=== PATIENT | female | born 1990 | race Two or more races ===

== ENCOUNTER 2020-08-09 16:56 | Observation (INO) | payer OTHER ==
[2020-08-13 17:10] LABS: COVID AG,FIA SOURCE NASOPHARYNGEAL
== END 2020-08-13 15:50 | disposition home or self-care (01) ==
LOC: 4S 08-13 15:44
PROVIDERS: ADMIT Obstetrics & Gynecology; ATTEND Obstetrics & Gynecology
DX: O48.0 Post-term pregnancy (principal); Z20.822 Contact with and (suspected) exposure to COVID-19; Z3A.40 40 weeks gestation of pregnancy
CPT/HCPCS: 87426; 99219

== ENCOUNTER 2020-08-15 15:00 | Inpatient (IN) | payer OTHER ==
[~2020-08-15] VITALS: Ht 160 cm; Wt 86.6 kg
[~2020-08-15 15:00] MED LIST: CITRIC ACID/SODIUM CITRATE 30 ML SOLUTION UDCUP PO PRN; FentaNYL CITRATE PF 100 MCG/2 ML VIAL IVP PRN; LIDOCAINE/PF 1% 30 ML VIAL SQ PRN; METHYLERGONOVINE MALEATE 0.2 MG/ML VIAL IM PRN; METOCLOPRAMIDE HCL 5 MG/ML 2 ML VIAL IVP PRN; OXYTOCIN 30 UNITS/LACT RINGERS 500 ML IV ONE; OXYTOCIN 30 UNITS/LACT RINGERS 500 ML IV PRN; RINGERS SOLUTION,LACTATED 1,000 ML IV PRN
[2020-08-15 15:47] LABS: BASOPHILS % (AUTO) 0.9 % (0.0-2.0); EOSINOPHILS % (AUTO) 0.7 % (1.0-6.0); HEMATOCRIT 36.5 % (36-46); HEMOGLOBIN 12.6 g/dL (12.0-16.0); LYMPHOCYTES # (AUTO) 1.6 K/uL (1.0-4.8); MEAN CORPUSCULAR HEMOGLOBIN 32.1 pg (26.0-34.0); MEAN CORPUSCULAR HGB CONC 34.6 G/dL (31.0-37.0); MEAN CORPUSCULAR VOLUME 93 fL (80-100); MONOCYTES # (AUTO) 0.5 K/uL (0.1-1.0); MONOCYTES % (AUTO) 5.5 % (2.0-9.0); NEUTROPHILS % (AUTO) 75.9 % (40.0-70.0); PLATELET COUNT (AUTO) 230 K/uL (150-450); RED BLOOD CELL COUNT(AUTO) 3.92 MIL/uL (4.00-5.20); RED CELL DISTRIBUTION WIDTH 14.8 % (11.5-14.5)
[2020-08-15] MEDS: RINGERS SOLUTION,LACTATED 1,000 ML IV SCH ×2 (15:58→22:00)
[2020-08-15] MEDS ORDERED: MISOPROSTOL 50 MCG TABLET PO SCH (16:45)
[2020-08-15 17:16] VITALS: BP 125/76
[2020-08-15] MEDS ORDERED: OXYGEN THERAPY IH SCH (20:00)
[2020-08-15] MEDS ORDERED: PREN-217 PO (20:36)
[2020-08-15] MEDS: MISOPROSTOL 50 MCG TABLET VG SCH (21:02)
[2020-08-16] MEDS: MISOPROSTOL 50 MCG TABLET VG SCH ×3 (01:03→09:12)
[2020-08-16] MEDS: RINGERS SOLUTION,LACTATED 1,000 ML IV SCH ×4 (06:34→19:30)
[2020-08-16] MEDS ORDERED: BUPIVACAINE HCL/DEX-WATER/PF 0.75% 2 ML AMP ITH ONE (10:22)
[2020-08-16] MEDS ORDERED: SODIUM CHLORIDE 0.9% 1,000 ML ONE (10:23)
[2020-08-16] MEDS ORDERED: MEPERIDINE-PF 25 MG/ML VIAL IVP PRN (10:45)
[2020-08-16] MEDS ORDERED: FentaNYL CITRATE PF 100 MCG/2 ML VIAL IVP PRN ×2 (10:45→11:15)
[2020-08-16] MEDS ORDERED: HYDROmorphone 2 MG/ML VIAL IVP PRN (10:45)
[2020-08-16] MEDS ORDERED: MORPHINE SULFATE 10 MG/ML SYRINGE IVP PRN (11:15)
[2020-08-16] MEDS ORDERED: NALBUPHINE HCL 10 MG/ML VIAL IVP PRN ×2 (11:15)
[2020-08-16] MEDS ORDERED: DiphenhydrAMINE HCL 50 MG/ML VIAL IVP PRN (11:15)
[2020-08-16] MEDS ORDERED: ONDANSETRON HCL 4 MG/2 ML VIAL IVP PRN (11:15)
[2020-08-16] MEDS ORDERED: NALOXONE HCL 0.4 MG/ML VIAL IVP PRN (11:15)
[2020-08-16] MEDS ORDERED: OxyCODONE HCL/ACETAMINOPHEN 5-325 MG TABLET PO PRN ×2 (11:30)
[2020-08-16] MEDS ORDERED: LANOLIN 7 GM OINTMENT TP PRN (11:30)
[2020-08-16] MEDS ORDERED: OXYTOCIN 30 UNITS/LACT RINGERS 500 ML IV ONE (11:30)
[2020-08-16] MEDS: ACETAMINOPHEN 1000 MG/ISO-OSM 100 ML IV SCH ×2 (13:39→22:01)
[2020-08-16] MEDS ORDERED: OXYGEN THERAPY IH SCH ×2 (20:00)
[2020-08-16] MEDS: OXYGEN THERAPY IH SCH (20:00)
[2020-08-16] MEDS: KETOROLAC TROMETHAMINE 30 MG/ML VIAL IVP SCH (20:34)
[2020-08-16] MEDS: MAGNESIUM HYDROXIDE SUSPENSION 30 ML UDCUP PO SCH (22:01)
[2020-08-17] MEDS: RINGERS SOLUTION,LACTATED 1,000 ML IV SCH (02:12)
[2020-08-17] MEDS: KETOROLAC TROMETHAMINE 30 MG/ML VIAL IVP SCH (02:13)
[2020-08-17] MEDS ORDERED: FentaNYL CITRATE PF 100 MCG/2 ML VIAL IVP ONE (05:42)
[2020-08-17] MEDS ORDERED: MORPHINE SULFATE 4 MG/ML SYRINGE IVP ONE (05:42)
[2020-08-17] MEDS ORDERED: OXYTOCIN 10 UNITS/ML VIAL IM ONE (05:42)
[2020-08-17] MEDS ORDERED: EPHEDrine SULFATE 50 MG/ML VIAL IM ONE (05:42)
[2020-08-17] MEDS ORDERED: 0.9% SODIUM CHLORIDE 10 ML VIAL IVP ONE (05:42)
[2020-08-17] MEDS ORDERED: ONDANSETRON HCL 4 MG/2 ML VIAL IVP ONE (05:42)
[2020-08-17 05:55] LABS: BASOPHILS % (AUTO) 0.4 % (0.0-2.0); EOSINOPHILS % (AUTO) 0.8 % (1.0-6.0); HEMOGLOBIN 10.5 g/dL (12.0-16.0); LYMPHOCYTES # (AUTO) 1.7 K/uL (1.0-4.8); LYMPHOCYTES % (AUTO) 16.4 % (22.0-44.0); MEAN CORPUSCULAR HEMOGLOBIN 32.7 pg (26.0-34.0); MEAN CORPUSCULAR HGB CONC 34.8 G/dL (31.0-37.0); MEAN CORPUSCULAR VOLUME 94 fL (80-100); MONOCYTES # (AUTO) 0.5 K/uL (0.1-1.0); MONOCYTES % (AUTO) 4.5 % (2.0-9.0); NEUTROPHILS # (AUTO) 7.9 K/uL (1.8-7.7); NEUTROPHILS % (AUTO) 77.9 % (40.0-70.0); PLATELET COUNT (AUTO)-OB 168 K/uL (150-450)
[2020-08-17] MEDS: OXYGEN THERAPY IH SCH ×2 (08:00→20:00)
[2020-08-17] MEDS: MAGNESIUM HYDROXIDE SUSPENSION 30 ML UDCUP PO SCH ×2 (08:20→21:05)
[2020-08-17] MEDS: IBUPROFEN 800 MG TABLET PO PRN ×2 (11:59→17:27)
[2020-08-18] MEDS: IBUPROFEN 800 MG TABLET PO PRN (08:12)
[2020-08-18] MEDS: MAGNESIUM HYDROXIDE SUSPENSION 30 ML UDCUP PO SCH (08:12)
[2020-08-18] MEDS ORDERED: DOCU-275 PO (11:19)
[2020-08-18] MEDS ORDERED: PERCT PO (11:21)
[2020-08-18] MEDS ORDERED: IBUP-2070 PO (11:21)
== END 2020-08-18 14:27 | disposition home or self-care (01) | DRG 788 ==
LOC: OBSVTOIN 15:00 → 4S 15:00
PROVIDERS: ADMIT Obstetrics & Gynecology; ATTEND Obstetrics & Gynecology
PROC: 10D00Z1 Extraction of Products of Conception, Low, Open Approach (ICD-10-PCS; principal; 2020-08-16)
DX: O76 Abnormality in fetal heart rate and rhythm complicating labor and delivery (principal); O69.81X0 Labor and delivery complicated by cord around neck, without compression, not applicable or unspecified; O62.1 Secondary uterine inertia; Z3A.41 41 weeks gestation of pregnancy; Z37.0 Single live birth
CPT/HCPCS: 86850; 86900; 86901; A9575; J0131; J0690; J1885; J2270; J2300; J2405; J2590; J2765; J3010; J3490; J7030; J7120